=== PATIENT | female | born 1985 | race African-American/Black ===

== ENCOUNTER 2019-01-17 09:16 | Emergency (ER) | payer MEDICAID ==
[~2019-01-17] VITALS: Ht 157.5 cm; Wt 60.0 kg
[~2019-01-17 09:16] MED LIST: IBUP-1008 PO
[2019-01-17] MEDS ORDERED: SODIUM CHLORIDE 0.9% 1,000 ML IV ONE (09:41)
[2019-01-17 10:06] LABS: BASOPHILS % 0.5 % (0.0-2.0); EOSINOPHILS % 1.7 % (0.0-5.0); HEMATOCRIT. 36.4 % (36.0-48.0); HEMOGLOBIN. 12.3 g/dL (12.0-16.0); LYMPHOCYTES % 21.8 % (20.0-50.0); PLATELET 423 x1000/uL (130-400); RED BLOOD CELL COUNT 3.96 mill/uL (4.2-5.4); RED CELL DISTRIBUTION WIDTH 13.4 % (11.6-14.6)
[2019-01-17 10:11] LABS: CHLORIDE 105 mEq/L (98-107)
[2019-01-17 10:15] LABS: ETHANOL BLOOD < 10 mg/dL
[2019-01-17 10:19] LABS: COLOR URINE YELLOW (YELLOW); KETONES URINE NEGATIVE (NEGATIVE); LEUKOCYTE ESTERASE URINE TRACE (NEGATIVE); NITRITE URINE NEGATIVE (NEGATIVE); OCCULT BLOOD URINE 3+ (NEGATIVE); PH URINE 5.5 (4.5-8.0); PROTEIN URINE TRACE (NEGATIVE); SPECIFIC GRAVITY URINE 1.027 (1.005-1.030); UROBILINOGEN URINE 0.2 E.U./dL (0.2-1.0)
[2019-01-17 10:20] LABS: CLARITY URINE SL HAZY (CLEAR)
[2019-01-17 10:22] LABS: HCG SCREEN NEGATIVE
[2019-01-17 10:30] LABS: *BARBITURATES SCREEN URINE NEGATIVE (NEGATIVE); *COCAINE SCREEN URINE NEGATIVE (NEGATIVE); METHADONE URINE SCREEN NEGATIVE (NEGATIVE)
[2019-01-17 10:32] LABS: OPIATES URINE SCREEN NEGATIVE (NEGATIVE)
[2019-01-17 10:34] LABS: *AMPHETAMINES SCREEN URINE PRESUMTIVE POSITIVE (NEGATIVE); *BENZODIAZEPINES SCREEN URINE PRESUMTIVE POSITIVE (NEGATIVE); CANNABINOID URINE SCREEN PRESUMTIVE POSITIVE (NEGATIVE); PHENCYCLIDINE URINE SCREEN PRESUMTIVE POSITIVE (NEGATIVE)
[2019-01-17] MEDS ORDERED: CEFTRIAXONE 1 G PREMIX 50 ML IV ONE (11:00)
[2019-01-17] MEDS ORDERED: POTASSIUM CHLORIDE 20MEQ TABLET SR PO ONE (14:00)
[2019-01-17] MEDS ORDERED: IBUPROFEN 600MG TABLET PO ONE (22:15)
[2019-01-18] MEDS: CEPHALEXIN 250MG CAPSULE PO SCH ×3 (09:46→17:35)
[2019-01-19] MEDS: CEPHALEXIN 250MG CAPSULE PO SCH ×3 (09:45→17:32)
[2019-01-19] MEDS ORDERED: NAPROXEN 375MG TABLET PO ONE (16:00)
[2019-01-19] MEDS ORDERED: BACITRACIN 15GM TUBE TOP ONE (16:00)
[2019-01-19] MEDS ORDERED: BACITRACIN ZINC OINT UDPKT TOP NR (16:30)
[2019-01-20 09:00] VITALS: BP 101/54
== END 2019-01-20 09:02 | disposition home or self-care (01) ==
LOC: ER 09:16
DX: F23 Brief psychotic disorder (principal); N39.0 Urinary tract infection, site not specified; E87.6 Hypokalemia; F15.10 Other stimulant abuse, uncomplicated; F12.10 Cannabis abuse, uncomplicated; F19.10 Other psychoactive substance abuse, uncomplicated; Z88.6 Allergy status to analgesic agent; Z88.5 Allergy status to narcotic agent
CPT/HCPCS: 36415; 70450; 74176; 80053; 80305; 80320; 81003; 84703; 85025; 87086; 93005; 96361; 96365; 99284; J0696; J7030; G0480